=== PATIENT | female | born 1990 | race Asian ===

== ENCOUNTER 2023-10-23 08:00 | Outpatient (CLI) | payer OTHER ==
[2023-10-23 16:33] LABS: BILIRUBIN,URINE NEGATIVE (NEGATIVE); GLUCOSE, URINE (UA) NEGATIVE (NEGATIVE); KETONES,URINE (UA) TRACE mg/dL (NEGATIVE); LEUKOCYTE ESTERASE, URINE NEGATIVE (NEGATIVE); NITRITE,URINE NEGATIVE (NEGATIVE); OCCULT BLOOD,URINE TRACE-INTA (NEGATIVE); PROTEIN,URINE NEGATIVE (NEGATIVE); UROBILINOGEN,URINE 0.2 (NORMAL) E.U./dL (NORMAL)
[2023-10-23 16:35] LABS: CLARITY,URINE CLEAR (CLEAR)
[2023-10-23 16:43] LABS: BACTERIA,URINE Few /HPF (None Seen); RBC,URINE 0-5 /HPF (0-5); SQUAMOUS EPITHELIAL CELL,UR FEW Squamous (<= Few); WBC,URINE 0-3 /HPF (0-5)
== END 2023-10-23 23:59 | disposition home or self-care (01) ==
LOC: LAB.WC 08:00
PROVIDERS: ATTEND Obstetrics & Gynecology
DX: Z34.90 Encounter for supervision of normal pregnancy, unspecified, unspecified trimester (principal)
CPT/HCPCS: 81001; 87086

== ENCOUNTER 2023-11-09 11:42 | Outpatient (CLI) | payer OTHER ==
[2023-11-09 18:01] LABS: BASOPHILS # (AUTO) 0.1 10^3/uL (0.0-0.1); BASOPHILS % (AUTO) 0.6 %; EOSINOPHILS # (AUTO) 0.2 10^3/uL (0.0-0.7); EOSINOPHILS % (AUTO) 2.2 %; HCT - HEMATOCRIT 38.7 % (37.0-47.0); HGB - HEMOGLOBIN 12.3 g/dL (12.0-16.0); LYMPHOCYTES # (AUTO) 1.8 10^3/uL (1.5-3.5); LYMPHOCYTES % (AUTO) 23.7 %; MEAN CORPUSCULAR HEMOGLOBIN 28.2 pg (27.0-31.0); MEAN CORPUSCULAR HGB CONC 31.8 g/dL (32.0-36.0); MEAN CORPUSCULAR VOLUME 88.8 fL (81.0-99.0); MEAN PLATELET VOLUME 9.6 fL (7.9-10.8); MONOCYTES # (AUTO) 0.5 10^3/uL (0.0-1.0); MONOCYTES % (AUTO) 6.6 %; NEUTROPHILS # (AUTO) 5.2 10^3/uL (1.5-6.6); NEUTROPHILS % (AUTO) 66.6 %; PLT - PLATELET COUNT 373 10^3/uL (130-450); RED BLOOD COUNT 4.36 10^6/uL (4.20-5.40); RED CELL DISTRIBUTION WIDTH 12.7 % (12.0-15.0); WHITE BLOOD COUNT 7.8 x10^3/uL (4.8-10.8)
[2023-11-10 05:13] LABS: HBsAG SCREEN Negative (Negative); HIV SCREEN 4TH GENERATION Non Reactive (Non Reactive)
[2023-11-10 08:11] LABS: RPR Non Reactive (Non Reactive)
[2023-11-10 09:10] LABS: VARICELLA-ZOSTER AB IGG 233 index (Immune >165)
[2023-11-11 01:08] LABS: HCV AB Non Reactive (Non Reactive)
== END 2023-11-09 11:43 | disposition home or self-care (01) ==
LOC: LAB.N 11:42
PROVIDERS: ATTEND Obstetrics & Gynecology
DX: Z34.90 Encounter for supervision of normal pregnancy, unspecified, unspecified trimester (principal)
CPT/HCPCS: 36415; 85025; 86592; 86762; 86787; 86803; 86850; 86900; 86901; 87340; 87389

== ENCOUNTER 2023-11-17 12:42 | Outpatient (CLI) | payer OTHER ==
--- NOTE | 2023-11-17 19:54 | Ultrasound Report ---
PROCEDURE: OB 1st Trimester w/TV INDICATIONS: POSITIVE TEST OUTSIDE/PRIOR DATING DATA: Last menstrual period (LMP): 09/03/2023. LMP-based estimated date of delivery (HILLARY): 06/09/2024. First dating scan (date and location): 11/17/2023. Estimated date of delivery (HILLARY) from first dating scan: 06/08/2024. TECHNIQUE: Real-time scanning was performed of the fetus and maternal pelvic organs, with image documentation. Endovaginal scanning was also performed to better visualize the fetus and maternal ovaries. COMPARISON: None. FINDINGS: Intrauterine gestational sac present. Embryo: 4.0 cm, 10 weeks 6 days Heart rate: 173 bpm. Other: No perigestational fluid collection. Measurement variability in dating: +/- 4 weeks by LMP, +/- 7 days by mean sac diameter (use before 6 weeks gestation if crown-rump length not able to be measured), +/- 5 days by crown-rump length (6-12 weeks gestation). Maternal organs: Ovaries appear within normal limits. IMPRESSION: 1. Living first trimester intrauterine with crown-rump length and heartbeat measuring 10 we eks 6 days Reviewed by: Isael Cotton MD on 11/17/2023 7:53 PM PDT Approved by: Isael Cotton MD on 11/17/2023 7:53 PM PDT Station ID: [id number]
== END 2023-11-17 12:43 | disposition home or self-care (01) ==
LOC: DI 12:42
PROVIDERS: ATTEND Obstetrics & Gynecology
DX: Z34.91 Encounter for supervision of normal pregnancy, unspecified, first trimester (principal)

== ENCOUNTER 2023-11-18 08:00 | Outpatient (CLI) | payer OTHER ==
[2023-11-18 20:37] LABS: CHLAMYDIA TRACHOMATIS DNA NEGATIVE (NEGATIVE); NEISSERIA GONORRHOEAE DNA NEGATIVE (NEGATIVE); TRICHOMONAS VAGINALIS DNA NEGATIVE (NEGATIVE)
== END 2023-11-18 23:58 | disposition home or self-care (01) ==
LOC: LAB.WC 08:00
PROVIDERS: ATTEND Obstetrics & Gynecology
DX: Z11.3 Encounter for screening for infections with a predominantly sexual mode of transmission (principal)
CPT/HCPCS: 87491; 87591; 87661

== ENCOUNTER 2023-12-16 11:04 | Outpatient (CLI) | payer OTHER ==
[2023-12-16 12:30] LABS: ESTIMATED AVERAGE GLUCOSE 94 mg/dL (70-100); HEMOGLOBIN A1c% 4.9 % (4.27-6.07)
== END 2023-12-16 11:05 | disposition home or self-care (01) ==
LOC: LAB 11:04
PROVIDERS: ATTEND Obstetrics & Gynecology
DX: Z34.90 Encounter for supervision of normal pregnancy, unspecified, unspecified trimester (principal)
CPT/HCPCS: 36415; 83036

== ENCOUNTER 2024-01-13 11:18 | Outpatient (CLI) | payer OTHER | END 2024-01-13 11:19 | disposition home or self-care (01) | LOC: LAB 11:18 | PROVIDERS: ATTEND Obstetrics & Gynecology | DX: Z34.90 Encounter for supervision of normal pregnancy, unspecified, unspecified trimester (principal) | CPT/HCPCS: 36415; 82105 ==

== ENCOUNTER 2024-06-04 06:33 | Inpatient (IN) ==
--- NOTE | 2024-06-04 10:02 | HISTORY & PHYSICAL EXAMINATION ---
Admit History Visit Reason Visit Reason: Contractions : 1 Care: positive [facility] Risk/History: positive None Complications This : positive None Smoking Status: Never smoker Other Maternal History Other Maternal History: presents in early labor. found to be 4 cm. contractions all night but getting more uncomfortable this am. did have a headache, better now. minimal swelling. baby moving well. Expected Delivery Route/Plan spontaneous labor with term vaginal delivery Specific Issues/Plans 33 yo LMP: 09/03/23 (sure) HILLARY by LMP: 06/09/24 US: 11/17/23, HILLARY 06/08/24, 10w6d Final HILLARY: 06/09/24 by LMP c/w 10wk US Baby aspirin recommended (nulliparity, BMI 32) Early gDM screening - A1C 4.9% FOB [place] in [employer]. 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 On [employer] since 2021, both of them are originally from [facility]. Allergies: NKDA RX: PNV, Aspirin, Magnesium Pre- Weight:171.2 BMI: 32.46 Blood type: O+ Antibody: negative CBC: PLT 373 HCT 38.7 HGB 12.3 RUB: immune VZV: immune HBsAg: negative HepC: NR RPR/AB-EIA: NR HIV: NR PAP:08/17/22 - normal GC/CT: 11/18/23 HSV:denies in self and partner Genetic testing: [id number] negative. boy. AFP- negative Covid: declined 2023 Flu: declined RSV: 04/19 FAS: Placenta:posterior w/o previa Cord:3VC SONAM: 12.7 wnl EFW:317.5g 24th %ile 50gm OGCT: 131 TDAP: 03/22/2024 Breast Pump:gave flyer RPR: NR 3rd trimester H/H 11.6/36.4 plt 330 RSV 04/19 GBS- collected 05/17 Negative Contraception: pull-out OB Visit Log Initial Weight: 171 lb HPI Current : Current EDU 06/09/24 Gestation 39 Weeks and 2 Days Para 0 Vital Signs Temperature 36.6 C 06/04/24 06:39 Pulse Rate 105 H 06/04/24 06:39 Respiratory Rate 18 06/04/24 06:39 Blood Pressure 123/76 06/04/24 06:39 NST Procedure NST Procedure: NST Procedure Start Date 06/04/24 Start Time 06:45 Stop Time 07:22 Vibroacoustic Stimulation Used No not indicated to have NST for normal labor. Meds/Allgy Home Medications Ambulatory Orders Medication Instructions Recorded Confirmed aspirin 81 mg tablet,delayed 81 mg PO QDAY 02/09/24 05/25/24 release (Adult Low Dose Aspirin) magnesium glycinate mg PO 02/09/24 05/25/24 vits no.126-ferrous fum 1 tab PO QDAY 02/09/24 05/25/24 28 mg iron-folic acid 800 mcg tablet (Classic ) famotidine 20 mg tablet (Pepcid) 20 mg PO BID #60 tabs 05/11/24 05/25/24 Allergies Allergies Allergy/AdvReac Type Severity Reaction Status Date / Time No Known Drug Allergies Allergy Verified 05/25/24 08:55 PFSH Family History Family History (Updated 03/23/24 @ 10:08 by Norma Andrade MA) Mother Breast cancer Father High blood pressure Heart attack Aunt Colon cancer Breast cancer Social History Social History (Updated 02/09/24 @ 08:13 by Jenny Wright LPN) Smoking Status: Never smoker Second hand tobacco smoke exposure: No Do you dip or chew tobacco?: No Do you vape?: No ETOH Use: None Substance Use: denies use Are you sexually active?: Yes Control Method: None Physical Abdominal Exam Vital Signs: Temp Pulse Resp BP 36.6 C 105 H 18 123/76 06/04/24 06:39 06/04/24 06:39 06/04/24 06:39 06/04/24 06:39 Contraction Frequency (min/apart): about 4 min Contraction Intensity: positive Mild to moderate Uterine Resting Tone: positive Soft Monitoring Heart Rate Baseline: 145 Strip Review: positive Category I Presentation Presentation: positive Vertex Vaginal Exam Membranes: positive Membranes intact Dilation (in cm): 4 cm per rn at 7 am Speculum Exam Speculum Exam Performed: positive No Plan for Labor Plan For Labor I expect patient to be DC'd or transferred within 96 hours.: Yes Conclusion/Plan Problem List (1) Normal labor: Plan: admit. start iv site. hopes for unmedicated labor. will try tub. reassess around noon. gbs neg. no other concerns Plan unmedicated vaginal delivery
[2024-06-04] MEDS ORDERED: OXYTOCIN/SODIUM CHLORIDE 500 ML IV PRN (11:01)
[2024-06-04] MEDS ORDERED: miSOPROStoL 200 MCG TABLET PR PRN (11:01)
[2024-06-04] MEDS ORDERED: fentaNYL 100 MCG/2 ML VIAL IVP PRN (11:01)
[2024-06-04] MEDS ORDERED: NIFEdipine 10 MG CAPSULE PO PRN (11:01)
[2024-06-04] MEDS ORDERED: hydrALAZINE INJ 20 MG/ML VIAL IVP PRN (11:01)
[2024-06-04] MEDS ORDERED: METHYLERGONOVINE 0.2 MG/ML VIAL IM PRN (11:01)
[2024-06-04] MEDS ORDERED: lidocaine 1% 20 ML MDV ID PRN (11:01)
[2024-06-04] MEDS ORDERED: TERBUTALINE 1 MG/ML VIAL SUBQ PRN (11:01)
[2024-06-04] MEDS ORDERED: LABETALOL 20 MG/4 ML SYRINGE IVP PRN ×3 (11:01)
[2024-06-04] MEDS ORDERED: SODIUM CHLORIDE FLUSH 0.9% 10 ML SYRINGE IVP PRN (11:01)
[2024-06-04] MEDS ORDERED: OXYTOCIN 10 UNIT/ML VIAL IM PRN (11:01)
[2024-06-04] MEDS ORDERED: miSOPROStoL 200 MCG TABLET BC PRN (11:01)
--- NOTE | 2024-06-04 13:09 | PROVIDER PROGRESS NOTE ---
Subjective Prog Note Date Prog Note Date: 06/04/24 Prog Note Time: 13:06 Subjective Subjective: Uncomfortable but still able to rest. does not want arom yet, maybe in 2 hrs. Current Medications Current Medications Current Medications: Current Medications Generic Name Dose Route Start Last Admin Trade Name Freq PRN Reason Stop Dose Admin Fentanyl 50 mcg 06/04/24 11:01 Fentanyl 100 Mcg/2 Ml Vial IVP Q1H PRN Severe Pain (score 7-10) Hydralazine HCl 5 - 10 mg 06/04/24 11:01 Hydralazine Inj 20 Mg/Ml Vial IVP Q20M PRN SBP> or= 160 OR DBP> or= 110 Protocol Lactated Ringer's 500 mls @ 999 mls/hr 06/04/24 11:01 Lr IV PRN PRN PER PHYSICIAN ORDER Oxytocin/Sodium Chloride 500 mls @ 999 mls/hr 06/04/24 11:01 Pitocin/Sodium Chloride IV PRN PRN POST- HEMORR PREVENTION Protocol 999 MILLIUNIT/MIN Tranexamic Acid 1,000 mg in 100 mls @ 600 mls/hr 06/04/24 11:01 Tranexamic 1,000 Mg/100ml-Nacl IV Q30M PRN EBL >1200mL and within 3hr Labetalol HCl 20 - 80 mg 06/04/24 11:01 Labetalol 20 Mg/4 Ml Syringe IVP Q10M PRN SBP> or= 160 OR DBP> or= 110 Protocol Labetalol HCl 20 mg 06/04/24 11:01 Labetalol 20 Mg/4 Ml Syringe IVP .ONCE PRN SBP> or= 160 OR DBP> or= 110 Protocol Labetalol HCl 20 - 40 mg 06/04/24 11:01 Labetalol 20 Mg/4 Ml Syringe IVP Q10M PRN SBP> or= 160 OR DBP> or= 110 Protocol Lidocaine HCl 20 ml 06/04/24 11:01 Lidocaine 1% 20 Ml Mdv ID 06/07/24 11:04 .ONCE PRN PERINEAL REPAIR Methylergonovine Maleate 0.2 mg 06/04/24 11:01 Methylergonovine 0.2 Mg/Ml Vial IM .ONCE PRN Hemorrhage Misoprostol 600 mcg 06/04/24 11:01 Misoprostol 200 Mcg Tablet BC .ONCE PRN Hemorrhage Misoprostol 800 mcg 06/04/24 11:01 Misoprostol 200 Mcg Tablet FL .ONCE PRN Hemorrhage Nifedipine 10 - 20 mg 06/04/24 11:01 Nifedipine 10 Mg Capsule PO Q20M PRN SBP> or= 160 OR DBP> or= 110 Protocol Oxytocin 10 unit 06/04/24 11:01 Oxytocin 10 Unit/Ml Vial IM .ONCE PRN Step One if no IV access. Sodium Chloride 10 ml 06/04/24 11:01 Sodium Chloride Flush 0.9% 10 Ml Syringe IVP PRN PRN NEEDED PER PROVIDER ORDERS Sodium Chloride 10 ml 06/04/24 12:00 Sodium Chloride Flush 0.9% 10 Ml Syringe IVP Q8H LULI Terbutaline Sulfate 0.25 mg 06/04/24 11:01 Terbutaline 1 Mg/Ml Vial SUBQ .ONCE PRN Tachystole Objective Vital Signs/Intake & Output Reviewed Vital Signs: Yes Vital Signs: Vital Signs x48h Temp Pulse Resp BP 06/04/24 06:39 36.6 C 105 H 18 123/76 Intake & Output: Intake & Output 06/01/24 06/02/24 06/03/24 06/04/24 23:59 23:59 23:59 23:59 Weight (kg) 206 lb Objective Comments/Other: cervix 5.5/80/-2 medium Assessment/Plan Problem List (1) Normal labor: Impression: making progress. still not very active yet. offered AROM but not ready yet. wants to rest more. ok still with intermittent monitoring. baby 155. reassess in 2 hrs. maybe arom then.
--- NOTE | 2024-06-04 13:50 | PHARMACY PROGRESS NOTE ---
Best Possible Medication History Admit Date and Time: 06/04/24 [id number] Home Medications Medication Instructions Recorded Confirmed Type aspirin 81 mg tablet,delayed 81 mg PO QDAY 02/09/24 06/04/24 History release (Adult Low Dose Aspirin) vits no.126-ferrous fum 1 tab PO QDAY 02/09/24 06/04/24 History 28 mg iron-folic acid 800 mcg tablet (Classic ) famotidine 20 mg tablet (Pepcid) 20 mg PO BID #60 tabs 05/11/24 06/04/24 Rx Processed by: Pharmacy Medications reviewed in ED?: No Medication History completed: Yes Patient Interview: Completed Secondary Source(s): Caregiver and Insurance records [facility] Statement: Per Surealripts record and RN interview /update. As the person ultimately responsible for medication therapy, providers are able to order a medication from an existing home medication list in [facility] via the "Reconcile Routine" prior to Confirmation of that medication by lab support technician. Such practice is discouraged except when the physician, in their clinical judgment, deems that a medical need exists for a medication without regard to previous use.
[2024-06-04 14:09] LABS: BASOPHILS % (AUTO) 0.4 %; EOSINOPHILS % (AUTO) 0.4 %; HCT - HEMATOCRIT 39.3 % (37.0-47.0); HGB - HEMOGLOBIN 12.5 g/dL (12.0-16.0); LYMPHOCYTES # (AUTO) 1.3 10^3/uL (1.5-3.5); LYMPHOCYTES % (AUTO) 13.3 %; MEAN CORPUSCULAR HEMOGLOBIN 28.2 pg (27.0-31.0); MEAN CORPUSCULAR HGB CONC 31.8 g/dL (32.0-36.0); MEAN CORPUSCULAR VOLUME 88.5 fL (81.0-99.0); MEAN PLATELET VOLUME 8.9 fL (7.9-10.8); MONOCYTES # (AUTO) 0.6 10^3/uL (0.0-1.0); MONOCYTES % (AUTO) 6.6 %; NEUTROPHILS # (AUTO) 7.6 10^3/uL (1.5-6.6); NEUTROPHILS % (AUTO) 78.3 %; PLT - PLATELET COUNT 269 10^3/uL (130-450); RED BLOOD COUNT 4.44 10^6/uL (4.20-5.40); RED CELL DISTRIBUTION WIDTH 16.5 % (12.0-15.0); WHITE BLOOD COUNT 9.7 x10^3/uL (4.8-10.8)
--- NOTE | 2024-06-04 15:30 | PROVIDER PROGRESS NOTE ---
Labor Progress Note Uterine Monitoring Uterine Monitoring Mode: positive External toco Contraction Frequency (min/apart): irregular Contraction Intensity: positive Mild to moderate Monitoring Monitor Mode: positive External ultrasound Heart Rate Baseline: 160 Heart Rate Variability: positive Moderate (6-25 bmp) Accelerations: positive Present, 15x15 Decelerations: positive None Strip Review: positive Category I Vaginal Exam Dilation (in cm): 6 Effacement (%): 80 Station: -2 Cervical Position: Midposition Labor Progress Note Labor Progress Note/Additional Text: not much change in her discomfort. AROM done and clear fluid. encouraged to get up and move around. hb 12.5. last bp diastolic 86 and pulse 112. will continue to watch these.
[2024-06-04] MEDS: LACTATED RINGERS 1,000 ML IV PRN (17:34)
[2024-06-04] MEDS ORDERED: ROPIVACAINE 0.2% 200 MG/100 ML BAG EP ONE (20:45)
[2024-06-04] MEDS ORDERED: LIDOCAINE 2%-EPI 1:100000 20 ML MDV ONE (20:45)
--- NOTE | 2024-06-04 21:36 | PROVIDER PROGRESS NOTE ---
Labor Progress Note Uterine Monitoring Uterine Monitoring Mode: positive External toco Contraction Frequency (min/apart): 3min Contraction Intensity: positive Moderate to strong Uterine Resting Tone: positive Soft Monitoring Monitor Mode: positive External ultrasound Heart Rate Baseline: 145 Heart Rate Variability: positive Moderate (6-25 bmp) Accelerations: positive Present, 15x15 Decelerations: positive Early Strip Review: positive Category I Vaginal Exam Dilation (in cm): 7 Station: 0 Labor Progress Note Labor Progress Note/Additional Text: was 7 cm at 8:15. very painful. got epidural and now resting comfortably. was feeling some rectal pressure. better now. will let her rest for a while and reassess in hrs or so.
--- NOTE | 2024-06-04 21:45 | ANESTHESIA PROCEDURE NOTE ---
Pre-Anesthesia VS, & Labs Diagnosis Surgical Diagnosis:: Active Labor Procedure Procedure: Vaginal Delivery Vitals Vital Signs: Temp Pulse Resp BP Pulse Ox 37.6 C 130 H 18 119/64 98 06/04/24 21:11 06/04/24 21:39 06/04/24 21:39 06/04/24 21:39 06/04/24 21:39 NPO NPO: Other (Clear liquids during labor) Is Patient ?: Yes Lab Results Current Lab Results: Laboratory Tests 06/04/24 14:03: WBC 9.7, RBC 4.44, Hgb 12.5, Hct 39.3, MCV 88.5, MCH 28.2, MCHC 31.8 L, RDW 16.5 H, Plt Count 269, MPV 8.9, Neut # (Auto) 7.6 H, Lymph # (Auto) 1.3 L, [place] # (Auto) 0.6, Eos # (Auto) 0.0, Baso # (Auto) 0.0, Absolute Nucleated RBC 0.00, Nucleated RBC % 0.0 06/04/24 13:45: Blood Type O POSITIVE, Antibody Screen NEGATIVE Lab results reviewed: Yes 06/04/24 14:03 Meds/Allgy Home Medications Ambulatory Orders Medication Instructions Recorded Confirmed aspirin 81 mg tablet,delayed 81 mg PO QDAY 02/09/24 06/04/24 release (Adult Low Dose Aspirin) vits no.126-ferrous fum 1 tab PO QDAY 02/09/24 06/04/24 28 mg iron-folic acid 800 mcg tablet (Classic ) famotidine 20 mg tablet (Pepcid) 20 mg PO BID #60 tabs 05/11/24 06/04/24 Allergies Allergies Allergy/AdvReac Type Severity Reaction Status Date / Time No Known Drug Allergies Allergy Verified 06/04/24 21:43 [facility] Medical History Medical History (Updated 06/04/24 @ 21:44 by Minna Mooney CRNA) Heartburn during Surgical History Surgical History (Updated 06/04/24 @ 21:44 by Minna Mooney CRNA) No pertinent past surgical history Family History Family History (Updated 03/23/24 @ 10:08 by Norma Andrade MA) Mother Breast cancer Father High blood pressure Heart attack Aunt Colon cancer Breast cancer Social History Social History (Updated 02/09/24 @ 08:13 by Jenny Wright LPN) Smoking Status: Never smoker Second hand tobacco smoke exposure: No Do you dip or chew tobacco?: No Do you vape?: No Patient requests smoking cessation consult: No Initiate information on smoking cessation: No ETOH Use: None Substance Use: denies use Are you sexually active?: Yes Control Method: None Anesthesia Exam (Expanded) Exam General: Alert, Oriented x3 and Cooperative Dental: WNL Mouth Openin Fingerbreadth Neck Mobility: Normal Mallampati classification: II Plan Plan Anesthesia Type: Epidural Consent for Procedure(s) Verified and Reviewed: Yes Code Status: Attempt Resuscitation ASA Classification ASA classification: 2-Mild systemic disease Is this case an emergency?: No
[2024-06-04] MEDS ORDERED: NALOXONE 0.4 MG/ML VIAL IVP PRN (21:46)
[2024-06-04] MEDS ORDERED: ePHEDrine 50 MG/ML VIAL IVP PRN (21:46)
[2024-06-05] MEDS: CALCIUM CARBONATE CHEW 500 MG TABLET PO SCH (01:18)
[2024-06-05] MEDS: ONDANSETRON 4 MG/2 ML VIAL IVP PRN (01:22)
[2024-06-05] MEDS: FAMOTIDINE 20 MG TABLET PO PRN (02:19)
[2024-06-05] MEDS ORDERED: ACETAMINOPHEN 500 MG TABLET PO ONE (03:45)
[2024-06-05] MEDS: ACETAMINOPHEN 500 MG TABLET PO PRN (03:48)
[2024-06-05] MEDS: AMPICILLIN/SULBACTAM 3 GM in SODIUM CHLORIDE 0.9% MINIBAG 100 ML IV SCH ×2 (03:49→10:02)
[2024-06-05] MEDS: ROPIVACAINE 0.2% 200 MG/100 ML BAG EP PRN (03:53)
[2024-06-05] MEDS: OXYTOCIN/SODIUM CHLORIDE 500 ML IV SCH (04:41)
--- NOTE | 2024-06-05 04:58 | PROVIDER PROGRESS NOTE ---
Labor Progress Note Vaginal Exam Dilation (in cm): complete Labor Progress Note Labor Progress Note/Additional Text: patient with fever now. and maternal tachycardia have been present much of labor are now more. Tylenol given. Unasyn 3 gm given. started pushing and doing great.
[2024-06-05] MEDS: LACTATED RINGERS 1,000 ML IV SCH (05:28)
[2024-06-05] MEDS: TRANEXAMIC ACID IN NACL 1,000 MG/100 ML BAG IV PRN (06:09)
[2024-06-05] MEDS ORDERED: LABETALOL 20 MG/4 ML SYRINGE IVP PRN ×2 (07:54)
[2024-06-05] MEDS ORDERED: LABETALOL 5 MG/1 ML 20 ML MDV IVP PRN (07:54)
[2024-06-05] MEDS ORDERED: oxyCODONE 5 MG TABLET PO PRN (07:54)
[2024-06-05] MEDS ORDERED: hydrALAZINE INJ 20 MG/ML VIAL IVP PRN ×2 (07:54)
[2024-06-05] MEDS ORDERED: SIMETHICONE CHEW 80 MG TABLET PO PRN (07:54)
[2024-06-05] MEDS ORDERED: ACETAMINOPHEN 500 MG TABLET PO PRN (07:54)
[2024-06-05] MEDS ORDERED: NALOXONE 0.4 MG/ML VIAL IVP PRN (07:54)
[2024-06-05] MEDS ORDERED: OXYTOCIN/SODIUM CHLORIDE 500 ML IV PRN (07:54)
[2024-06-05] MEDS ORDERED: NIFEdipine 10 MG CAPSULE PO PRN (07:54)
--- NOTE | 2024-06-05 07:54 | DELIVERY NOTE ---
Delivery Note Labor Labor: positive Spontaneous and Augmented by ARM Delivery Method Delivery Method: positive Spontaneous vaginal delivery Presentation Presentation: positive Vertex and OA - occiput anterior Nuchal Cord Nuchal Cord: positive Present and Reduced Amniotic Fluid Description Amniotic Fluid Description: positive Clear and Moderate meconium (with delivery) Episiotomy Type Episiotomy Type: positive None Laceration Laceration: positive 4th degree Suture Suture Type: positive Vicryl Suture Size: positive 2-0, 3-0 and 4-0 Delivery Outcome Delivery Date: 06/05/24 Delivery Time: 06:01 Delivery Outcome: positive Livebirth [place]: positive Placed in direct skin contact with mother, Bulb syringe, Stimulated, [place] used and Warmer used [place] sex: positive Male Cord Cord: positive 3 vessels Placenta Placenta: positive Intact and Spontaneous Estimated Blood Loss Estimated Blood Loss (in cc): 1,000 Post Delivery Events Post Delivery Events: positive Other (4th degree laceration with blood loss of 1000 cc) Delivery Comments (Free Text/Narrative) Delivery Comments (Free Text/Narrative): 33 yo G1 at 39w2d presents in early active labor, about 4 cm. admitted in the morning of 06/04. hoping to have natural . uncomplicated. GBS neg. Labored without any medication. AROM 15:25 to augment. clear fluid, she was about 5.5 cm then. AT 20:15 her contractions were very painful and I checked her and she was only 7 cm. She decided to get an epidural which worked great for her. She rested. She was completely dilated about 3:30 but not feeling anything. She developed a fever to 101 and and maternal tachycardia worsened. Tylenol, iv fluid bolus of 500 cc and 3 grams of Unasyn were given. She started pushing at 4:31. She was very strong and pushed well with amazing pain relief. Baby lottie Power delivered at 6:01 on 06/05. the head crowned I did my best to support the perineum. There was beginnings of a shoulder dystocia. Bed was lowered, legs were already back. Nuchal cord x 1 reduced. Withing 30 seconds shoulders came under pubic bone with gentle downward pressure. baby delivered and was placed on mom's belly but was pretty limp and not crying. Dr. Colvin was here due to fever and tachycardia so she asked for the baby to be brought over to her. Cord was clamped and cut at about 45 seconds and baby started crying. He was taken to the warmer but brought back to mom fairly quickly. Placenta delivered spontaneously, intack, 3 vessel cord. Uterus contracted well and bleeding from the uterus was not an issue. Upon inspection of perineum there was a 4th degree laceration and it was bleeding pretty briskly. TXA was given in the IV. the laceration was repaired with 2-0 Vicryl in 2 layers to bring the anal wall together and a second imbricating layer. Then 3-0 vicryl was used to tie off the areas that were bleeding. Then the anal sphincter was brought together with 4 figure of 8 stitches with good support. The vaginal tissue was brought together. the sub q was brought together. Then 4-0 vicryl was used on for subcuticular layer at the skin. I reassess the rectum and there seemed to be a very thin area within the vagina. This was oversewn with a figure of 8. Once complete, she was cleaned up, straight cath was done. repair looked very good. drape and sponges were weighed after counting. QBL Was 1000cc. counts were correct. Placenta to pathology given fever hand tachycardia of mom and baby.
[2024-06-05] MEDS: DOCUSATE SODIUM 100 MG CAPSULE PO SCH (08:48)
[2024-06-05] MEDS: IBUPROFEN 600 MG TABLET PO PRN (08:48)
--- NOTE | 2024-06-05 19:40 | PROVIDER PROGRESS NOTE ---
Subjective Prog Note Date Prog Note Date: 06/05/24 Prog Note Time: 19:00 Subjective Subjective: patient is feeling pretty good. She asked me when the pain medicine would wear off for her perineal repair. I explained that it had hours ago and she was surprised. She is not too painful. UP to void to issue. struggling a bit to figure out breast feeding. Luis E, as always is very supportive. just taking motrin and tylenol. no oxycodone. Current Medications Current Medications Current Medications: Current Medications Generic Name Dose Route Start Last Admin Trade Name Freq PRN Reason Stop Dose Admin Acetaminophen 1,000 mg 06/05/24 03:42 06/05/24 12:14 Acetaminophen 500 Mg Tablet PO 1,000 mg Q8HR PRN Administration Pain or Fever > 38C (100.4F) Calcium Carbonate/Glycine 500 mg 06/04/24 17:00 06/05/24 19:34 Calcium Carbonate Chew 500 Mg Tablet PO Not Given TID LULI Docusate Sodium 100 mg 06/05/24 09:00 06/05/24 08:48 Docusate Sodium 100 Mg Capsule PO 100 mg BID LULI Administration Famotidine 20 mg 06/05/24 01:19 06/05/24 02:19 Famotidine 20 Mg Tablet PO 20 mg BID PRN Administration Heartburn Hydralazine HCl 5 - 10 mg 06/04/24 11:01 Hydralazine Inj 20 Mg/Ml Vial IVP Q20M PRN SBP> or= 160 OR DBP> or= 110 Protocol Hydralazine HCl 10 mg 06/05/24 07:54 Hydralazine Inj 20 Mg/Ml Vial IVP .ONCE PRN SBP> or= 160 OR DBP> or= 110 Protocol Hydralazine HCl 5 - 10 mg 06/05/24 07:54 Hydralazine Inj 20 Mg/Ml Vial IVP Q20M PRN SBP >=160 and/or DBP >=110 Protocol Ibuprofen 600 mg 06/05/24 07:54 06/05/24 15:08 Ibuprofen 600 Mg Tablet PO 600 mg Q6HR PRN Administration Moderate Pain (Level 4-6) Labetalol HCl 20 - 80 mg 06/04/24 11:01 Labetalol 20 Mg/4 Ml Syringe IVP Q10M PRN SBP> or= 160 OR DBP> or= 110 Protocol Labetalol HCl 20 mg 06/04/24 11:01 Labetalol 20 Mg/4 Ml Syringe IVP .ONCE PRN SBP> or= 160 OR DBP> or= 110 Protocol Labetalol HCl 20 - 40 mg 06/04/24 11:01 Labetalol 20 Mg/4 Ml Syringe IVP Q10M PRN SBP> or= 160 OR DBP> or= 110 Protocol Labetalol HCl 20 - 80 mg 06/05/24 07:54 Labetalol 5 Mg/1 Ml 20 Ml Mdv IVP Q10M PRN SBP> or= 160 OR DBP> or= 110 Protocol Labetalol HCl 20 - 40 mg 06/05/24 07:54 Labetalol 20 Mg/4 Ml Syringe IVP Q10M PRN SBP> or= 160 OR DBP> or= 110 Protocol Labetalol HCl 20 mg 06/05/24 07:54 Labetalol 20 Mg/4 Ml Syringe IVP .ONCE PRN SBP >=160 and/or DBP >=110 Protocol Naloxone HCl 0.1 mg 06/04/24 21:46 Naloxone 0.4 Mg/Ml Vial IVP Q2M PRN RR<8 Naloxone HCl 0.4 mg 06/05/24 07:54 Naloxone 0.4 Mg/Ml Vial IVP .ONCE PRN Opioid Overdose Nifedipine 10 - 20 mg 06/04/24 11:01 Nifedipine 10 Mg Capsule PO Q20M PRN SBP> or= 160 OR DBP> or= 110 Protocol Nifedipine 10 - 20 mg 06/05/24 07:54 Nifedipine 10 Mg Capsule PO Q20M PRN SBP >=160 and/or DBP >=110 Protocol Ondansetron HCl 4 mg 06/04/24 21:46 06/05/24 01:22 Ondansetron 4 Mg/2 Ml Vial IVP 4 mg Q6HR PRN Administration Nausea / Vomiting Oxycodone HCl 5 mg 06/05/24 07:54 Oxycodone 5 Mg Tablet PO Q4HR PRN Severe Pain 6-10 Polyethylene Glycol 17 gm 06/06/24 09:00 Polyethylene Glycol 3350 17 Gm Packet PO DAILY LULI Simethicone 80 mg 06/05/24 07:54 Simethicone Chew 80 Mg Tablet PO TID PRN Gas Sodium Chloride 10 ml 06/04/24 11:01 Sodium Chloride Flush 0.9% 10 Ml Syringe IVP PRN PRN NEEDED PER PROVIDER ORDERS Sodium Chloride 10 ml 06/04/24 12:00 Sodium Chloride Flush 0.9% 10 Ml Syringe IVP Q8H LULI Objective Vital Signs/Intake & Output Reviewed Vital Signs: Yes Vital Signs: Vital Signs x48h Temp Pulse Resp BP Pulse Ox 06/05/24 16:00 37.2 C 130 H 16 116/75 98 06/05/24 12:30 36.9 C 95 16 120/62 97 Intake & Output: Intake & Output 06/02/24 06/03/24 06/04/24 06/05/24 23:59 23:59 23:59 23:59 Intake Total 1000 / 1000 2300 / 2300 Output Total 800 / 800 Balance 1000 / 1000 1500 / 1500 Weight (kg) 206 lb Objective General Appearance: positive No acute distress Lab Results 06/04/24 14:03 Assessment/Plan Problem List (1) Fourth degree perineal laceration during delivery, delivered: Impression: doing great with her recovery so far. will check cbc tonight as last pulse is 130. (2) Maternal fever affecting labor: Impression: no further fever. received one dose of Unasyn before delivery and a second 6 hrs later for the fever and the 4th degree.
[2024-06-05 20:01] LABS: HCT - HEMATOCRIT 31.8 % (37.0-47.0); MEAN CORPUSCULAR HEMOGLOBIN 28.3 pg (27.0-31.0); MEAN CORPUSCULAR HGB CONC 31.4 g/dL (32.0-36.0); MEAN CORPUSCULAR VOLUME 90.1 fL (81.0-99.0); MEAN PLATELET VOLUME 8.9 fL (7.9-10.8); RED BLOOD COUNT 3.53 10^6/uL (4.20-5.40); RED CELL DISTRIBUTION WIDTH 16.9 % (12.0-15.0); WHITE BLOOD COUNT 19.6 x10^3/uL (4.8-10.8)
[2024-06-05] MEDS: SODIUM CHLORIDE FLUSH 0.9% 10 ML SYRINGE IVP SCH (20:08)
[2024-06-06] MEDS ORDERED: polyethylene glycoL 3350 17 GM PACKET ONE (03:15)
[2024-06-06] MEDS: polyethylene glycoL 3350 17 GM PACKET PO SCH (03:16)
--- NOTE | 2024-06-06 08:11 | PROVIDER PROGRESS NOTE ---
Subjective Subjective Subjective: Subjective Patient reports she is doing well. Lochia appropriate. Denies heavy bleeding. Ambulating. Pelvic and abdominal pain well-controlled. Being careful with fourth degree laceration. Tolerating oral intake. Diet: Regular. Voiding without difficulty. Passing flatus. Denies BM. Patient is bonding with baby in room Breast feeding going well. Denies feeling lightheaded, dizzy or excessively fatigued. Objective General: Alert, oriented, no apparent distress. Cardiovascular: Regular rate. Regular rhythm. Lungs: No increased work of breathing. Abdomen: Uterus firm. Below umbilicus. No guarding or rebound. Extremities: No pain on palpation. No cords palpated. Distal pulses intact. Current Medications Current Medications Current Medications: Current Medications Generic Name Dose Route Start Last Admin Trade Name Freq PRN Reason Stop Dose Admin Acetaminophen 1,000 mg 06/05/24 03:42 06/06/24 03:59 Acetaminophen 500 Mg Tablet PO 1,000 mg Q8HR PRN Administration Pain or Fever > 38C (100.4F) Docusate Sodium 100 mg 06/05/24 09:00 06/05/24 20:07 Docusate Sodium 100 Mg Capsule PO 100 mg BID LULI Administration Famotidine 20 mg 06/05/24 01:19 06/05/24 02:19 Famotidine 20 Mg Tablet PO 20 mg BID PRN Administration Heartburn Hydralazine HCl 5 - 10 mg 06/04/24 11:01 Hydralazine Inj 20 Mg/Ml Vial IVP Q20M PRN SBP> or= 160 OR DBP> or= 110 Protocol Hydralazine HCl 10 mg 06/05/24 07:54 Hydralazine Inj 20 Mg/Ml Vial IVP .ONCE PRN SBP> or= 160 OR DBP> or= 110 Protocol Hydralazine HCl 5 - 10 mg 06/05/24 07:54 Hydralazine Inj 20 Mg/Ml Vial IVP Q20M PRN SBP >=160 and/or DBP >=110 Protocol Ibuprofen 600 mg 06/05/24 07:54 06/06/24 03:11 Ibuprofen 600 Mg Tablet PO 600 mg Q6HR PRN Administration Moderate Pain (Level 4-6) Labetalol HCl 20 - 80 mg 06/04/24 11:01 Labetalol 20 Mg/4 Ml Syringe IVP Q10M PRN SBP> or= 160 OR DBP> or= 110 Protocol Labetalol HCl 20 mg 06/04/24 11:01 Labetalol 20 Mg/4 Ml Syringe IVP .ONCE PRN SBP> or= 160 OR DBP> or= 110 Protocol Labetalol HCl 20 - 40 mg 06/04/24 11:01 Labetalol 20 Mg/4 Ml Syringe IVP Q10M PRN SBP> or= 160 OR DBP> or= 110 Protocol Labetalol HCl 20 - 80 mg 06/05/24 07:54 Labetalol 5 Mg/1 Ml 20 Ml Mdv IVP Q10M PRN SBP> or= 160 OR DBP> or= 110 Protocol Labetalol HCl 20 - 40 mg 06/05/24 07:54 Labetalol 20 Mg/4 Ml Syringe IVP Q10M PRN SBP> or= 160 OR DBP> or= 110 Protocol Labetalol HCl 20 mg 06/05/24 07:54 Labetalol 20 Mg/4 Ml Syringe IVP .ONCE PRN SBP >=160 and/or DBP >=110 Protocol Naloxone HCl 0.1 mg 06/04/24 21:46 Naloxone 0.4 Mg/Ml Vial IVP Q2M PRN RR<8 Naloxone HCl 0.4 mg 06/05/24 07:54 Naloxone 0.4 Mg/Ml Vial IVP .ONCE PRN Opioid Overdose Nifedipine 10 - 20 mg 06/04/24 11:01 Nifedipine 10 Mg Capsule PO Q20M PRN SBP> or= 160 OR DBP> or= 110 Protocol Nifedipine 10 - 20 mg 06/05/24 07:54 Nifedipine 10 Mg Capsule PO Q20M PRN SBP >=160 and/or DBP >=110 Protocol Ondansetron HCl 4 mg 06/04/24 21:46 06/05/24 01:22 Ondansetron 4 Mg/2 Ml Vial IVP 4 mg Q6HR PRN Administration Nausea / Vomiting Oxycodone HCl 5 mg 06/05/24 07:54 Oxycodone 5 Mg Tablet PO Q4HR PRN Severe Pain 6-10 Polyethylene Glycol 17 gm 06/06/24 09:00 06/06/24 03:16 Polyethylene Glycol 3350 17 Gm Packet PO 17 gm DAILY LULI Administration Simethicone 80 mg 06/05/24 07:54 Simethicone Chew 80 Mg Tablet PO TID PRN Gas Sodium Chloride 10 ml 06/04/24 11:01 Sodium Chloride Flush 0.9% 10 Ml Syringe IVP PRN PRN NEEDED PER PROVIDER ORDERS Sodium Chloride 10 ml 06/04/24 12:00 06/06/24 00:58 Sodium Chloride Flush 0.9% 10 Ml Syringe IVP Not Given Q8H LULI Objective Vital Signs/Intake & Output Vital Signs: Vital Signs x48h Temp Pulse Resp BP Pulse Ox 06/06/24 03:25 36.8 C 89 18 127/62 98 06/06/24 00:45 36.8 C 93 18 128/69 98 Intake & Output: Intake & Output 06/03/24 06/04/24 06/05/24 06/06/24 23:59 23:59 23:59 23:59 Intake Total 1000 / 1000 2300 / 2300 Output Total 1100 / 1100 Balance 1000 / 1000 1200 / 1200 Weight (kg) 206 lb Lab Results 06/06/24 08:57 Other Labs: Lab Results x24hrs 06/05/24 Range/Units 19:58 WBC 19.6 H (4.8-10.8) x10^3/uL RBC 3.53 L (4.20-5.40) 10^6/uL Hgb 10.0 L (12.0-16.0) g/dL Hct 31.8 L (37.0-47.0) % MCV 90.1 (81.0-99.0) fL MCH 28.3 (27.0-31.0) pg MCHC 31.4 L (32.0-36.0) g/dL RDW 16.9 H (12.0-15.0) % Plt Count 266 (130-450) 10^3/uL MPV 8.9 (7.9-10.8) fL Sepsis Event Note (H) Evaluation Current Stage of Sepsis: Sepsis Possible source of Sepsis: positive Genitourinary Sepsis Criteria Sepsis Criteria: Recorded Heart Rate greater than 90 bpm (Greater than greater than 110 in ) and WBC count greater than 12,000 or less than 4000 (Greater than 15,000 in ) Assessment/Plan Problem List (1) care and examination of lactating mother: Impression: Routine care in addition to sepsis management. Stool softeners for fourth degree (2) Sepsis: Impression: Resolving. Tachycardia resolved. WBC increased, but some elevation normal after delivery. Received two doses of ampicillin-sulbactam. Will check CBC and lactic acid. Qualifiers: Sepsis acute organ dysfunction status: without acute organ dysfunction Sepsis type: sepsis during labor Qualified Code(s): O75.3 - Other infection during labor; A41.9 - Sepsis, unspecified organism (3) Fourth degree perineal laceration during delivery, delivered: Impression: Discussed long-term care. (4) Maternal fever affecting labor: Impression: Resolved (5) Chorioamnionitis: Impression: Resolving Qualifiers: Fetus number: fetus 1 of multiple gestation Trimester: unspecified trimester Qualified Code(s): O41.1291 - Chorioamnionitis, unspecified trimester, fetus 1
[2024-06-06 09:03] LABS: BASOPHILS # (AUTO) 0.1 10^3/uL (0.0-0.1); BASOPHILS % (AUTO) 0.4 %; EOSINOPHILS # (AUTO) 0.2 10^3/uL (0.0-0.7); EOSINOPHILS % (AUTO) 1.1 %; HCT - HEMATOCRIT 27.9 % (37.0-47.0); HGB - HEMOGLOBIN 8.8 g/dL (12.0-16.0); LYMPHOCYTES % (AUTO) 14.2 %; MEAN CORPUSCULAR HEMOGLOBIN 28.5 pg (27.0-31.0); MEAN CORPUSCULAR HGB CONC 31.5 g/dL (32.0-36.0); MEAN CORPUSCULAR VOLUME 90.3 fL (81.0-99.0); MEAN PLATELET VOLUME 8.6 fL (7.9-10.8); MONOCYTES # (AUTO) 0.8 10^3/uL (0.0-1.0); MONOCYTES % (AUTO) 5.5 %; NEUTROPHILS % (AUTO) 77.1 %; PLT - PLATELET COUNT 200 10^3/uL (130-450); RED BLOOD COUNT 3.09 10^6/uL (4.20-5.40); RED CELL DISTRIBUTION WIDTH 17.2 % (12.0-15.0); WHITE BLOOD COUNT 14.3 x10^3/uL (4.8-10.8)
[2024-06-07 04:17] VITALS: O2SAT 99
--- NOTE | 2024-06-07 08:40 | Discharge Summary ---
Discharge Summary ALLERGIES Allergies Allergy/AdvReac Type Severity Reaction Status Date / Time adhesive tape AdvReac Mild Rash Verified 06/04/24 23:33 MEDICATIONS Ambulatory Orders Medication Instructions Recorded Confirmed vits no.126-ferrous fum 1 tab PO QDAY 02/09/24 06/04/24 28 mg iron-folic acid 800 mcg tablet (Classic ) famotidine 20 mg tablet (Pepcid) 20 mg PO BID #60 tabs 05/11/24 06/04/24 docusate sodium 100 mg capsule 100 mg PO BID 30 days #60 caps 06/07/24 LABS 06/06/24 08:57 SEPSIS Current Stage of Sepsis: Sepsis Possible source of Sepsis: Genitourinary Sepsis Criteria: Recorded Heart Rate greater than 90 bpm (Greater than greater than 110 in ) and WBC count greater than 12,000 or less than 4000 (Greater than 15,000 in ) Discharge Plan Discharge Patient Disposition: 01 Home, Self Care Condition: Stable Medically Cleared Date:: 06/07/24 Prescriptions: New docusate sodium 100 mg Capsule 100 mg PO BID 30 Days Qty: 60 0RF Continued Classic 28 mg iron- 800 mcg tablet 1 tab PO QDAY famotidine [Pepcid] 20 mg tablet 20 mg PO BID Qty: 60 2RF Discontinued aspirin [Adult Low Dose Aspirin] 81 mg tablet,delayed release (DR/EC) 81 mg PO QDAY Activity Restrictions: Additional Comments Diet: Regular Print Language: Kyrgyz Patient Instructions: Vaginal After, Depression Follow-up Care: Lizzy Lockwood MD [Provider Admit Priv/Credential] -
--- NOTE | 2024-06-07 09:16 | Discharge Summary ---
Discharge Summary Admit Date: 06/04/24 Discharge Date: 06/07/24 Discharging Provider: Jarocho Phillip MD Code Status: Attempt Resuscitation DIAGNOSES Admission Diagnoses: Labor at term 39 weeks gestation Discharge Diagnoses with Status of Each Condition: Delivery of live blum Status post spontaneous vaginal delivery Status post fourth degree laceration repair Chorionitis: Resolved Sepsis: Resolved HPI History of Present Illness: Subjective Patient reports she is doing well. Lochia appropriate. Denies heavy bleeding. Ambulating. Pelvic and abdominal pain well-controlled. Tolerating oral intake. Diet: Regular. Voiding without difficulty. Passing flatus. Denies BM. Patient is bonding with baby in room Breast feeding going well. Supplementing with bottlefeeding Denies feeling lightheaded, dizzy or excessively fatigued. Objective General: Alert, oriented, no apparent distress. Cardiovascular: Regular rate. Regular rhythm. Lungs: No increased work of breathing. Abdomen: Uterus firm. Below umbilicus. No guarding or rebound. Extremities: No pain on palpation. No cords palpated. Distal pulses intact. HOSPITAL COURSE Hospital Course: Patient was admitted at 39 weeks gestation labor. She had amniotomy performed with clear fluid but had meconium at delivery. She developed chorioamnionitis and received 2 doses of ampicillin sulbactam. During delivery, she had 4th degree laceration that was repaired. She met criteria for sepsis, but this quickly resolved. course was unremarkable and she was discharged on postoperative day 2, however baby stayed under lites for hyperbilirubinemia. ALLERGIES Allergies Allergy/AdvReac Type Severity Reaction Status Date / Time adhesive tape AdvReac Mild Rash Verified 06/04/24 23:33 MEDICATIONS Ambulatory Orders Medication Instructions Recorded Confirmed vits no.126-ferrous fum 1 tab PO QDAY 02/09/24 06/04/24 28 mg iron-folic acid 800 mcg tablet (Classic ) famotidine 20 mg tablet (Pepcid) 20 mg PO BID #60 tabs 05/11/24 06/04/24 docusate sodium 100 mg capsule 100 mg PO BID 30 days #60 caps 06/07/24 LABS 06/06/24 08:57 SEPSIS Current Stage of Sepsis: Sepsis Possible source of Sepsis: Genitourinary Sepsis Criteria: Recorded Heart Rate greater than 90 bpm (Greater than greater than 110 in ) and WBC count greater than 12,000 or less than 4000 (Greater than 15,000 in ) [facility] TIME SPENT Time Spent in Discharge (Minutes): 30 Discharge Plan Discharge Patient Disposition: 01 Home, Self Care Condition: Stable Medically Cleared Date:: 06/07/24 Prescriptions: New docusate sodium 100 mg Capsule 100 mg PO BID 30 Days Qty: 60 0RF Continued Classic 28 mg iron- 800 mcg tablet 1 tab PO QDAY famotidine [Pepcid] 20 mg tablet 20 mg PO BID Qty: 60 2RF Discontinued aspirin [Adult Low Dose Aspirin] 81 mg tablet,delayed release (DR/EC) 81 mg PO QDAY Activity Restrictions: Additional Comments Diet: Regular Print Language: Swedish Patient Instructions: Vaginal After, Depression Follow-up Care: Lizzy Lockwood MD [Provider Admit Priv/Credential] -
[2024-06-07 09:25] VITALS: BP 119/83; TEMP 98.2
--- NOTE | 2024-06-07 12:58 | Labor Flowsheet ---
Labor Flowsheet Datetime Report Generated by CPN: 06/07/2024 12:57 Datetime: 06/07/2024 00:45 VITAL SIGNS NBP Sys/Jenny/Mean (mmHg): 104 : 54 : 67 Pulse: 80 Datetime: 06/07/2024 00:44 SpO2 (%): 100 Datetime: 06/06/2024 03:27 Stage of : Recovery Datetime: 06/05/2024 08:45 PAIN Pain Scale: 3 Pain Presence: None/Denies Pain Type: N/A Datetime: 06/05/2024 07:37 Temperature (C): 37.3 Datetime: 06/05/2024 06:42 ANESTHESIA Anesthesia Plans: Epidural Anesthesia Comments: pump off Datetime: 06/05/2024 06:29 LaborFlag: Labor Datetime: 06/05/2024 06:00 UTERINE ACTIVITY Monitor Mode: External Frequency (min): 1.5-3 Quality: Strong Duration (sec): 70-110 Pattern: Normal: <= 5 Contractions in 10 Minutes Resting Tone (Palpate): Relaxed ASSESSMENT A Monitor Mode: External US FHR Baseline Rate : 170 FHR Baseline Changes: Tachycardia Variability: Moderate 6-25 bpm Accelerations: 15X15 Decelerations: Early; Variable Datetime: 06/05/2024 04:30 Vital Sign Comments: physcian present and aware Datetime: 06/05/2024 04:20 I/O Interventions: Ramirez Discontinued Patient Care Comments: 200 ml Datetime: 06/05/2024 03:39 Provider Notified (Name): Dr Whitein Notification Reason: Status Update; Status; Labor Status; Maternal Vital Sign Change Communication Comments: maternal and tachycardia with temp 100.6, VE10+2 Datetime: 06/05/2024 03:32 VAGINAL EXAM Dilatation (cm): 10.0 Effacement (%): 100 Station: 2 Exam by: [email or web address],RN Datetime: 06/05/2024 03:30 Monitor Interventions for UA: [place] Adjusted Datetime: 06/05/2024 03:22 COMMUNICATION Communication: RN Reviewed Strip Datetime: 06/05/2024 03:00 Monitor Interventions for FHR: Ultrasound Adjusted Datetime: 06/05/2024 01:28 Patient Position/Activity: High Fowlers Datetime: 06/05/2024 00:30 Category: Category I Datetime: 06/04/2024 23:09 Vaginal Bleeding: Normal Show Cervix, Consistency: Soft Cervix, Position: Midposition Datetime: 06/04/2024 21:02 Epidural Procedure: Cath Placed Datetime: 06/04/2024 20:54 Epidural Positioning: Sitting Datetime: 06/04/2024 20:50 Consults: Anesthesia Datetime: 06/04/2024 20:47 PROCEDURE TIME OUT Procedure Verify: Correct Patient Identity; Correct Side and Site are Marked; Accurate Procedure Co nsent Form; Agreement on Procedure to be Done; Correct Patient Position; Relevant Images and Results are Properly Labeled and Displayed; Addressed Need to Administer Antibiotics or Fluids for Irrigation ; Safety Precautions Based on Patient History or Medication Use Datetime: 06/04/2024 18:29 PATIENT CARE Oxygen Method: Room Air Datetime: 06/04/2024 18:00 Actions for Decelerations: IV Bolus Datetime: 06/04/2024 16:44 Comments: tracing mom, mom in bathroom Datetime: 06/04/2024 16:05 Pain Coping: Breathing Through Contractions Pain Assessment Comments: using nitrous Comfort Measures: Breathing/Relaxation Datetime: 06/04/2024 15:25 Membrane Status: Ruptured Membranes Ruptured Date/Time: 06/04/2024 15:25 Membranes Rupture Method: Artificial Amniotic Fluid Color: Clear Amniotic Fluid Amount: Small Amniotic Fluid Odor: Normal Datetime: 06/04/2024 11:29 Contraction Comments: per pt report Datetime: 06/04/2024 10:21 MATERNAL ASSESSMENT Level of Consciousness: Agitation or Confusion Headache: Denies Nausea/Vomiting: Denies RUQ Epigastric Pain: Denies
== END 2024-06-07 12:57 | disposition home or self-care (01) | DRG 768 ==
LOC: WFO 06:33 → FBP 06:34
PROVIDERS: ADMIT Obstetrics & Gynecology; ATTEND Obstetrics & Gynecology
DX: O66.0 Obstructed labor due to shoulder dystocia; A41.9 Sepsis, unspecified organism; R00.0 Tachycardia, unspecified; Z3A.39 39 weeks gestation of pregnancy; O41.1230 Chorioamnionitis, third trimester, not applicable or unspecified; O76 Abnormality in fetal heart rate and rhythm complicating labor and delivery; O70.3 Fourth degree perineal laceration during delivery; O75.3 Other infection during labor; O77.0 Labor and delivery complicated by meconium in amniotic fluid; O99.892 Other specified diseases and conditions complicating childbirth; O75.2 Pyrexia during labor, not elsewhere classified; Z37.0 Single live birth; O69.81X0 Labor and delivery complicated by cord around neck, without compression, not applicable or unspecified